=== PATIENT | female | born 1980 | race Caucasian/White ===

== ENCOUNTER 2021-06-18 16:21 | Inpatient (IN) | payer BC ==
[2021-06-18] MEDS ORDERED: NALOXONE HCL 0.4 MG/ML VIAL IM PRN (18:55)
[2021-06-18] MEDS ORDERED: BISMUTH SUBSALICYLATE 524 MG/30 ML PO PRN (18:55)
[2021-06-18] MEDS ORDERED: MAGNESIUM CITRATE 300 ML BOTTLE PO PRN (18:55)
[2021-06-18] MEDS ORDERED: DICYCLOMINE HCL 10 MG CAPSULE PO PRN (18:55)
[2021-06-18] MEDS ORDERED: MAG HYDROX/AL HYDROX/SIMETH 30 ML UNIT-DOSE CUP PO PRN (18:55)
[2021-06-18] MEDS ORDERED: MAGNESIUM HYDROX 2400MG/30ML ORAL SUSPENSION 30 ML CUP PO PRN (18:55)
[2021-06-18] MEDS ORDERED: P-EPHED 60MG/TRIPROLIDI 2.5MG TABLET PO PRN (18:55)
[2021-06-18] MEDS ORDERED: NALOXONE (NARCAN) HCL 4 MG/0.1 ML SPRAY NS PRN (18:55)
[2021-06-18] MEDS ORDERED: ACETAMINOPHEN 325 MG TABLET (FP) PO PRN ×2 (18:55)
[2021-06-18] MEDS ORDERED: MENTHOL/PHENOL 1 EACH UD MM PRN (18:55)
[2021-06-18] MEDS ORDERED: guaiFENesin 200 MG/10 ML 10 ML UNIT-DOSE CUPS PO PRN (18:55)
[2021-06-18 19:08] VITALS: BMI 26.1
[2021-06-18] MEDS ORDERED: ALBUTEROL SO4 HFA INHALER IH PRN (19:29)
[2021-06-18] MEDS: MELATONIN 5 MG TABLETS PO SCH (23:10)
[2021-06-18] MEDS: THIAMINE HCL 100 MG TABLET (FP) PO SCH (23:10)
[2021-06-19] MEDS: hydrOXYzine PAMOATE 25 MG CAPSULE (FP) PO PRN (08:21)
[2021-06-19] MEDS: METHOCARBAMOL 500 MG TABLET PO PRN (08:21)
[2021-06-19] MEDS: ONDANSETRON *ODT* 4 MG TABLET SL PRN (08:21)
[2021-06-19] MEDS ORDERED: methaDONE HCL 10 MG TABLET (FOR DETOX USE ONLY) PO ONE (10:01)
[2021-06-19] MEDS ORDERED: cloNIDine HCL 0.1 MG TABLET PO PRN (10:01)
[2021-06-19] MEDS: PRENATAL VITAMINS W/ FOLIC ACID TABLET (FP) PO SCH (10:53)
[2021-06-19] MEDS: NICOTINE 21 MG/24 HOURS TOPICAL PATCH TD SCH (10:55)
[2021-06-19] MEDS: THIAMINE HCL 100 MG TABLET (FP) PO SCH (23:01)
[2021-06-19] MEDS: MELATONIN 5 MG TABLETS PO SCH (23:01)
[2021-06-19] MEDS: IBUPROFEN 400 MG TABLET (FP) PO PRN (23:02)
[2021-06-20] MEDS ORDERED: methaDONE HCL 10 MG TABLET (FOR DETOX USE ONLY) ONE (09:48)
[2021-06-20] MEDS: hydrOXYzine PAMOATE 25 MG CAPSULE (FP) PO PRN (10:48)
[2021-06-20] MEDS: METHOCARBAMOL 500 MG TABLET PO PRN (10:48)
[2021-06-20] MEDS: NICOTINE 21 MG/24 HOURS TOPICAL PATCH TD SCH (10:48)
[2021-06-20] MEDS: PRENATAL VITAMINS W/ FOLIC ACID TABLET (FP) PO SCH (10:48)
[2021-06-20] MEDS: MELATONIN 5 MG TABLETS PO SCH (22:43)
[2021-06-20] MEDS: THIAMINE HCL 100 MG TABLET (FP) PO SCH (22:44)
[2021-06-21] MEDS ORDERED: methaDONE HCL 10 MG TABLET (FOR DETOX USE ONLY) PO ONE (10:00)
[2021-06-21] MEDS: PRENATAL VITAMINS W/ FOLIC ACID TABLET (FP) PO SCH (10:23)
[2021-06-21] MEDS: NICOTINE 21 MG/24 HOURS TOPICAL PATCH TD SCH (10:27)
[2021-06-21] MEDS: ONDANSETRON *ODT* 4 MG TABLET SL PRN (13:30)
[2021-06-21] MEDS: METHOCARBAMOL 500 MG TABLET PO PRN ×2 (15:53→22:46)
[2021-06-21] MEDS: MELATONIN 5 MG TABLETS PO SCH (22:39)
[2021-06-21] MEDS: hydrOXYzine PAMOATE 25 MG CAPSULE (FP) PO PRN (22:40)
[2021-06-21] MEDS: THIAMINE HCL 100 MG TABLET (FP) PO SCH (22:40)
[2021-06-21] MEDS: NICOTINE 10 MG CARTRIDGE (INHALER) IH PRN (22:42)
[2021-06-21] MEDS: IBUPROFEN 400 MG TABLET (FP) PO PRN (22:46)
[2021-06-22] MEDS ORDERED: methaDONE HCL 10 MG TABLET (FOR DETOX USE ONLY) ONE (09:40)
[2021-06-22] MEDS: NICOTINE 21 MG/24 HOURS TOPICAL PATCH TD SCH (10:32)
[2021-06-22] MEDS: PRENATAL VITAMINS W/ FOLIC ACID TABLET (FP) PO SCH (10:32)
[2021-06-22] MEDS: METHOCARBAMOL 500 MG TABLET PO PRN ×2 (10:34→17:44)
[2021-06-22] MEDS: hydrOXYzine PAMOATE 25 MG CAPSULE (FP) PO PRN ×3 (10:35→22:32)
[2021-06-22] MEDS: METHYL SALICYLATE/MENTHOL OINT 30 GM TUBE TP SCH ×2 (11:33→22:31)
[2021-06-22] MEDS: VITAMINS A AND D TOPICAL OINTMENT 60 GM TUBE TP SCH ×2 (11:34→22:33)
[2021-06-22] MEDS: NICOTINE 10 MG CARTRIDGE (INHALER) IH PRN ×2 (12:12→17:43)
[2021-06-22] MEDS: MELATONIN 5 MG TABLETS PO SCH (22:32)
[2021-06-22] MEDS: THIAMINE HCL 100 MG TABLET (FP) PO SCH (22:32)
[2021-06-22] MEDS: IBUPROFEN 400 MG TABLET (FP) PO PRN (22:34)
[2021-06-22] MEDS: NICOTINE POLACRILEX 4 MG GUM BUC PRN (22:36)
[2021-06-23] MEDS ORDERED: methaDONE HCL 10 MG TABLET (FOR DETOX USE ONLY) PO ONE (10:00)
[2021-06-23] MEDS: METHYL SALICYLATE/MENTHOL OINT 30 GM TUBE TP SCH ×2 (10:10→22:33)
[2021-06-23] MEDS: VITAMINS A AND D TOPICAL OINTMENT 60 GM TUBE TP SCH ×2 (10:10→22:33)
[2021-06-23] MEDS: NICOTINE 21 MG/24 HOURS TOPICAL PATCH TD SCH (10:10)
[2021-06-23] MEDS: PRENATAL VITAMINS W/ FOLIC ACID TABLET (FP) PO SCH (10:10)
[2021-06-23] MEDS: NICOTINE POLACRILEX 4 MG GUM BUC PRN ×2 (10:11→22:34)
[2021-06-23] MEDS: NICOTINE 10 MG CARTRIDGE (INHALER) IH PRN ×2 (10:11→22:33)
[2021-06-23] MEDS: METHOCARBAMOL 500 MG TABLET PO PRN (10:13)
[2021-06-23] MEDS: hydrOXYzine PAMOATE 25 MG CAPSULE (FP) PO PRN ×2 (10:13→22:33)
[2021-06-23 12:37] LABS: BASO % 1.2 % (0-2.0); EOS % 1.9 % (0-4.5); HEMATOCRIT 36.4 % (32.4-45.2); LYMPH % 32.4 % (8-40); MCH 27.1 pg (25.7-33.7); MEAN CELL VOLUME 82.1 fl (80-96); MEAN PLT VOLUME 7.1 fl (7.5-11.1); MONO % 7.9 % (3.8-10.2); NEUT % 56.6 % (42.8-82.8); PLATELET COUNT 301 10^3/uL (134-434); RBC 4.44 M/mm3 (3.60-5.2); RDW 13.9 % (11.6-15.6); WHITE BLOOD COUNT 5.2 K/mm3 (4.0-10.0)
[2021-06-23 12:44] LABS: BLOOD UREA NITROGEN 18.2 mg/dL (7-18)
[2021-06-23 12:47] LABS: CALCIUM 8.6 mg/dL (8.5-10.1)
[2021-06-23 12:48] LABS: ALBUMIN 2.6 g/dl (3.4-5.0)
[2021-06-23 12:51] LABS: CREATININE 0.7 mg/dL (0.55-1.3)
[2021-06-23 12:53] LABS: BILIRUBIN,TOTAL 0.2 mg/dL (0.2-1); TOT PROT 6.4 g/dl (6.4-8.2)
[2021-06-23] MEDS: THIAMINE HCL 100 MG TABLET (FP) PO SCH (22:32)
[2021-06-23] MEDS: MELATONIN 5 MG TABLETS PO SCH (22:33)
[2021-06-24 06:41] VITALS: BP 94/54; PULSE 67; TEMP 98.4
[2021-06-24] MEDS: hydrOXYzine PAMOATE 25 MG CAPSULE (FP) PO PRN (10:04)
[2021-06-24] MEDS: METHYL SALICYLATE/MENTHOL OINT 30 GM TUBE TP SCH (10:52)
[2021-06-24] MEDS: VITAMINS A AND D TOPICAL OINTMENT 60 GM TUBE TP SCH (10:52)
[2021-06-24] MEDS: PRENATAL VITAMINS W/ FOLIC ACID TABLET (FP) PO SCH (10:52)
[2021-06-24] MEDS: NICOTINE 21 MG/24 HOURS TOPICAL PATCH TD SCH (10:53)
== END 2021-06-24 11:10 | disposition home or self-care (01) | DRG 773 ==
LOC: YASAS 16:21 → UNDOADMIN 18:47 → Y3N 18:47
PROVIDERS: ADMIT Allergy & Immunology; ATTEND Allergy & Immunology
PROC: HZ2ZZZZ Detoxification Services for Substance Abuse Treatment (ICD-10-PCS; principal; 2021-06-18)
DX: F11.23 Opioid dependence with withdrawal (principal); F11.220 Opioid dependence with intoxication, uncomplicated; F14.20 Cocaine dependence, uncomplicated; F12.10 Cannabis abuse, uncomplicated; F17.210 Nicotine dependence, cigarettes, uncomplicated; F19.24 Other psychoactive substance dependence with psychoactive substance-induced mood disorder; F41.9 Anxiety disorder, unspecified; F32.9 Major depressive disorder, single episode, unspecified; J45.909 Unspecified asthma, uncomplicated; I45.81 Long QT syndrome; Z56.0 Unemployment, unspecified; Z59.02 Unsheltered homelessness
CPT/HCPCS: 36415; 71046-TC-FY; 80053; 81025; 85025; 86780; 87811; 93005; 93010; C9803; Q0162; U0003; U0005